=== PATIENT | female | born 1970 | race Caucasian/White ===

== ENCOUNTER 2017-02-03 19:15 | Emergency (ER) | payer OTHER ==
--- NOTE | ~2017-02-03 | CR113 ---
[facility]. [facility] A Service of [facility] & [facility] RADIOLOGY TEXT RESULTS PATIENT: ELISE SALHE LOCATION: SED : 68 UNIT #: [id number] AGE: [address]: Maria Del Rosario Sanchez SEX: F ORDER DR: [id number] [address] [address] [id number] E MR#: [id number] Acc #: [id number] NAME: ELISE SALEH : 1970 SEX: F STUDY DATE/TIME: 02/03/2017 19:13 UNIT: SED ROOM: STUDY DESCRIPTION: CR Finger 2 View [address] Attending Physician: Maria Del Rosario Sanchez Pa-C Ordering Physician: Ki Curiel M.D. Primary Care Physician: Tee Martines M.D. MEDICAL IMAGING REPORT This report is preliminary unless electronic signature is present. EXAM Right fourth digit series, 02/03/2017 INDICATION Right fourth digit pain after a fall tonight. PROCEDURE 3 views of the right fourth digit. COMPARISON None. FINDINGS No acute fracture and no dislocation. IMPRESSION No acute findings. Dictated by... Lebron Garrido M.D. THIS IS AN ELECTRONICALLY VERIFIED REPORT Lebron Garrido M.D. at 02/05/2017 7:00 AM GURPREET/north TD: 02/04/2017 03:06 JOB #: [id number] MEDICAL IMAGING REPORT
[~2017-02-03 19:15] MED LIST: ALBUTEROL17 GM; ALPRAZOLAM PO; BENTYL20 MG PO; BENZONATATE; CIPRO PO; DIAZEPAM; EXCEDRIN MIGRA1 EACH PO; FLAGYL PO; HYDROCODON-ACE1 EAC7 PO; LORTAB 7.5-5001 TAB PO; LOTRISONE CREAM45 GM TOP; METRONIDAZOLE VAG; NAPROSYN-EC500 MG PO; NORCO 5MG/325MG PO; NORFLEX100 M1 PO; OMEPRAZOLE20 M1; PERCOCET5/325 PO; PHENERGAN; PHENERGAN PO; PHENERGAN25 M1; PHENERGAN25 M1 PO; PREDNISONE; PRILOSEC20 MG PO; PROTONIX; PROTONIX PO; SYNTHROID; SYNTHROID PO; SYNTHROID125 PO; ULTRAM PO; VITACON FORTE; VOLTAREN75 MG PO; Z-PAK; ZYRTEC
== END 2017-02-03 19:49 | disposition home or self-care (01) ==
LOC: SED 19:15
DX: S63.614A Unspecified sprain of right ring finger, initial encounter (principal); M54.9 Dorsalgia, unspecified; G89.29 Other chronic pain; J44.9 Chronic obstructive pulmonary disease, unspecified; W01.10XA Fall on same level from slipping, tripping and stumbling with subsequent striking against unspecified object, initial encounter; Y92.009 Unspecified place in unspecified non-institutional (private) residence as the place of occurrence of the external cause; F17.200 Nicotine dependence, unspecified, uncomplicated
CPT/HCPCS: 29130; 73140; 99283

== ENCOUNTER 2017-04-11 11:03 | Emergency (ER) | payer OTHER ==
--- NOTE | ~2017-04-11 | CR63 ---
[facility]. [facility] A Service of [facility] & [facility] RADIOLOGY TEXT RESULTS PATIENT: ELISE SALEH LOCATION: SED : 68 UNIT #: [id number] AGE: [address]: YARITZA DUMONT SEX: F ORDER DR: [id number] [place] [id number] E MR#: [id number] Acc #: [id number] NAME: ELISE SALEH : 1970 SEX: F STUDY DATE/TIME: 04/11/2017 UNIT: SED ROOM: STUDY DESCRIPTION: CR Chest 2 View Attending Physician: Yaritza Dumont Aprn Referring Physician: Yaritza Dumont Aprn Ordering Physician: Yaritza Dumont Aprn Primary Care Physician: Tee Martines M.D. MEDICAL IMAGING REPORT This report is preliminary unless electronic signature is present. EXAM Chest 2 views 04/11/2017 1139 hours HISTORY 47-year-old woman with cough, shortness of air for 2 days. COMPARISON 01/30/2017 FINDINGS Upright PA and lateral views of the chest demonstrate normal cardiac, mediastinal and hilar contours. The lungs are well expanded and clear of acute densities. Stable calcified granulomata. No effusions. IMPRESSION Stable benign calcified granulomatous changes. There are no acute cardiopulmonary findings. No change from 01/30/2017. Dictated by... Goldie Reyna M.D. THIS IS AN ELECTRONICALLY VERIFIED REPORT Goldie Reyna M.D. at 04/11/2017 2:26 PM Seng TD: 04/11/2017 12:14 JOB #: [id number] MEDICAL IMAGING REPORT Page 1 of 1
[2017-04-11] MEDS ORDERED: XANAX1 MG PO (11:13)
[2017-04-11 11:51] LABS: INFLUENZA A NEG (NEG); INFLUENZA B NEG (NEG)
[2017-04-11 12:21] LABS: BASOPHIL# 0.2 X10e3 (0-0.3); BASOPHIL% 0.8 % (0-2.5); EOSINOPHIL# 0.1 X10e3 (0-0.7); EOSINOPHIL% 0.6 % (0.0-7.0); HEMATOCRIT 43.1 % (35.0-45.0); HEMOGLOBIN 14.3 gm/dL (12.0-16.0); LYMPHOCYTE# 2.5 X10e3 (1.0-3.5); LYMPHOCYTE% 11.8 % (17.0-45.0); MEAN CELL VOLUME 91.3 FL (83-96); MEAN CORPUSCULAR HEMOGLOBIN 30.3 PG (28-34); MEAN CORPUSCULAR HGB CONC 33.2 g/dL (30-36); MEAN PLATELET VOLUME 9.8 FL (6.5-11.5); MONOCYTE# 1.2 X10e3 (0-1.0); MONOCYTE% 5.6 % (3.0-12.0); NEUTROPHIL# 17.2 X10e3 (1.5-7.1); NEUTROPHIL% 81.2 % (40-75); PLATELET COUNT 255 X10e3 (140-420); RED BLOOD COUNT 4.72 X10e (3.90-5.30); RED CELL DISTRIBUTION WIDTH 14.8 % (11.0-15.5); WHITE BLOOD COUNT 21.2 X10e3 (4.0-10.5)
[2017-04-11 12:26] LABS: DIFF IND YES
[2017-04-11 12:32] LABS: INR 0.9; PROTHROMBIN TIME (PATIENT) 10.3 SECONDS (9.5-12.4)
[2017-04-11 12:39] LABS: BUN/CREATININE RATIO 18.88; CALCIUM SERUM 8.8 mg/dL (8.4-10.2); CREATININE SERUM 0.9 mg/dL (0.6-1.4); GLOM FILT RATE Estimated 75.7 mL/min (>60); PARTIAL THROMBOPLASTIN TIME 26.2 SECONDS (25.6-38.1); POTASSIUM 4.2 mmol/L (3.5-5.1)
[2017-04-11 12:54] LABS: ANISOCYTOSIS SL; PLATELET ESTIMATE NORMAL (NORMAL); POIKILOCYTOSIS SL
== END 2017-04-11 13:45 | disposition home or self-care (01) ==
LOC: SED 11:03
PROVIDERS: Nurse Practitioner Family
DX: J06.9 Acute upper respiratory infection, unspecified (principal); F17.210 Nicotine dependence, cigarettes, uncomplicated; Z79.82 Long term (current) use of aspirin; Z79.899 Other long term (current) drug therapy; Z88.0 Allergy status to penicillin; Z88.2 Allergy status to sulfonamides; Z88.5 Allergy status to narcotic agent; Z88.8 Allergy status to other drugs, medicaments and biological substances
CPT/HCPCS: 36415; 71020; 80048; 85025; 85610; 85730; 87651; 87804; 99283